=== PATIENT | male | born 1990 | race Two or more races ===

== ENCOUNTER 2023-09-25 22:20 | Emergency (ER) | payer SELFPAY ==
[2023-09-25] MEDS ORDERED: Sodium Chloride 0.9% 2.5 ML Syringe FLUSH PRN (22:29)
[2023-09-25] MEDS ORDERED: Sodium Chloride 0.9% 10 ML Syringe FLUSH PRN (22:29)
[2023-09-25] MEDS: Diphtheria,Pertussis(Acell),Tetanus Vaccine 0.5 ML Syringe IM ONE (22:59)
== END 2023-09-25 23:15 | disposition left against medical advice (07) ==
LOC: MW.ED 22:20
DX: T20.12XA Burn of first degree of lip(s), initial encounter (principal); S00.511A Abrasion of lip, initial encounter; K08.89 Other specified disorders of teeth and supporting structures; W39.XXXA Discharge of firework, initial encounter; Z75.8 Other problems related to medical facilities and other health care
CPT/HCPCS: 90471; 90715; 99283-25